=== PATIENT | female | born 1985 | race Caucasian/White ===

== ENCOUNTER 2016-09-11 10:55 | Observation (INO) | payer OTHER ==
[~2016-09-11] VITALS: Ht 159 cm; Wt 77.0 kg
[~2016-09-11 10:55] MED LIST: IBUP-2070 PO; LEVO100 PO; PREN1TAB80 PO
[2016-09-11 12:19] VITALS: BP 97/54
== END 2016-09-11 12:05 | disposition home or self-care (01) ==
LOC: 4S 10:55
PROVIDERS: ADMIT Obstetrics & Gynecology; ATTEND Obstetrics & Gynecology
DX: O36.8130 Decreased fetal movements, third trimester, not applicable or unspecified (principal); O99.283 Endocrine, nutritional and metabolic diseases complicating pregnancy, third trimester; E03.9 Hypothyroidism, unspecified; Z3A.31 31 weeks gestation of pregnancy
CPT/HCPCS: 59025; G0378

== ENCOUNTER 2016-10-03 13:15 | Observation (INO) | payer OTHER ==
[~2016-10-03 13:15] MED LIST changes: -IBUP-2070 PO; -LEVO100 PO
[2016-10-03 13:25] VITALS: BP 113/63
[2016-10-03] MEDS ORDERED: CefTRIAXone SODIUM 1 GM/VIAL IM ONE (14:00)
[2016-10-03] MEDS ORDERED: LIDOCAINE HCL/PF 1% 2 ML VIAL IM ONE (14:00)
[2016-10-03 14:25] LABS: BASOPHILS % (AUTO) 0.2 % (0.0-2.0); HEMATOCRIT 33.8 % (36-46); HEMOGLOBIN 10.9 g/dL (12.0-16.0); LYMPHOCYTES # (AUTO) 1.4 K/uL (1.0-4.8); LYMPHOCYTES % (AUTO) 12.7 % (22.0-44.0); MEAN CORPUSCULAR HEMOGLOBIN 28.5 pg (26.0-34.0); MEAN CORPUSCULAR HGB CONC 32.2 G/dL (31.0-37.0); MEAN CORPUSCULAR VOLUME 89 fL (80-100); MONOCYTES # (AUTO) 0.7 K/uL (0.1-1.0); MONOCYTES % (AUTO) 6.3 % (2.0-9.0); NEUTROPHILS # (AUTO) 8.7 K/uL (1.8-7.7); NEUTROPHILS % (AUTO) 79.8 % (40.0-70.0); RED BLOOD CELL COUNT(AUTO) 3.82 MIL/uL (4.00-5.20); RED CELL DISTRIBUTION WIDTH 14.8 % (11.5-14.5); WHITE BLOOD COUNT (AUTO) 10.9 K/uL (4.5-11.0)
[2016-10-03 14:54] LABS: APPEARANCE,URINE CLOUDY (CLEAR); GLUCOSE, URINE (UA) NEGATIVE (NEGATIVE); KETONES,URINE NEGATIVE (NEGATIVE); LEUKOCYTE ESTERASE ,URINE TRACE (NEGATIVE); OCCULT BLOOD,URINE LARGE (NEGATIVE); PROTEIN,URINE NEGATIVE (NEGATIVE)
[2016-10-03 15:02] LABS: FIBRINOGEN 385 mg/dL (200-400); PARTIAL THROMBOPLASTIN TIME 24 SEC (25-35); PROTHROMBIN TIME 10.3 SEC (9.4-11.6)
[2016-10-03 15:11] LABS: ADD UA MICROSCOPIC YES
[2016-10-03 15:23] LABS: SQUAMOUS EPITHELIAL CELL,UR Moderate /LPF (None Seen)
== END 2016-10-03 16:55 | disposition home or self-care (01) ==
LOC: 4S 13:15
PROVIDERS: ADMIT Obstetrics & Gynecology; ATTEND Obstetrics & Gynecology
DX: O46.93 Antepartum hemorrhage, unspecified, third trimester (principal); Z3A.34 34 weeks gestation of pregnancy
CPT/HCPCS: 36415; 59025; 76805; 81001; 85025; 85362; 85384; 85610; 85730; 86850; 86900; 86901; 87086; 96372; G0378; J0696; J3490

== ENCOUNTER 2016-10-26 02:41 | Inpatient (IN) | payer OTHER ==
[~2016-10-26] VITALS: Ht 157.5 cm; Wt 77.1 kg
[2016-10-26] MEDS ORDERED: RINGERS SOLUTION,LACTATED 1,000 ML IV PRN (03:49)
[2016-10-26] MEDS ORDERED: OXYTOCIN 30 UNITS/LACT RINGERS 500 ML IV ONE (03:49)
[2016-10-26] MEDS ORDERED: METOCLOPRAMIDE HCL 5 MG/ML 2 ML VIAL IVP PRN (04:00)
[2016-10-26] MEDS ORDERED: CITRIC ACID/SODIUM CITRATE 30 ML SOLUTION UDCUP PO PRN (04:00)
[2016-10-26] MEDS ORDERED: FentaNYL CITRATE-PF 100 MCG/2 ML VIAL IVP PRN (04:00)
[2016-10-26] MEDS ORDERED: RINGERS SOLUTION,LACTATED 1,000 ML IV ONE (04:00)
[2016-10-26 04:17] VITALS: BP 99/55
[2016-10-26 04:26] LABS: BASOPHILS % (AUTO) 0.3 % (0.0-2.0); EOSINOPHILS % (AUTO) 1.1 % (1.0-6.0); HEMATOCRIT 33.1 % (36-46); HEMOGLOBIN 10.7 g/dL (12.0-16.0); LYMPHOCYTES # (AUTO) 1.6 K/uL (1.0-4.8); LYMPHOCYTES % (AUTO) 12.9 % (22.0-44.0); MEAN CORPUSCULAR HEMOGLOBIN 27.8 pg (26.0-34.0); MEAN CORPUSCULAR HGB CONC 32.4 G/dL (31.0-37.0); MEAN CORPUSCULAR VOLUME 86 fL (80-100); MONOCYTES # (AUTO) 0.8 K/uL (0.1-1.0); MONOCYTES % (AUTO) 6.5 % (2.0-9.0); NEUTROPHILS # (AUTO) 9.6 K/uL (1.8-7.7); NEUTROPHILS % (AUTO) 79.2 % (40.0-70.0); RED BLOOD CELL COUNT(AUTO) 3.86 MIL/uL (4.00-5.20); RED CELL DISTRIBUTION WIDTH 15.3 % (11.5-14.5); WHITE BLOOD COUNT (AUTO) 12.1 K/uL (4.5-11.0)
[2016-10-26] MEDS ORDERED: OXYTOCIN 30 UNITS/LACT RINGERS 500 ML IV PRN (07:30)
[2016-10-26] MEDS: RINGERS SOLUTION,LACTATED 1,000 ML IV SCH ×3 (11:48→15:14)
[2016-10-26] MEDS ORDERED: BUPIVACAINE HCL/PF 0.25% 30 ML VIAL ONE (13:01)
[2016-10-26] MEDS ORDERED: FentaNYL/BUPIV 0.125%/NS/PF 200 ML ED ONE (13:02)
[2016-10-26] MEDS ORDERED: FentaNYL/BUPIV 0.125%/NS/PF 200 ML ED PRN (13:50)
[2016-10-26] MEDS ORDERED: ONDANSETRON HCL 4 MG/2 ML VIAL IVP PRN (14:00)
[2016-10-26] MEDS ORDERED: DiphenhydrAMINE HCL 50 MG/ML VIAL IVP PRN (14:00)
[2016-10-26] MEDS ORDERED: LIDOCAINE HCL/PF 2% 5 ML VIAL ONE ×2 (15:04→16:46)
[2016-10-26] MEDS ORDERED: OXYTOCIN 20 UNITS in RINGERS SOLUTION,LACTATED 1,000 ML IV ONE (18:30)
[2016-10-26] MEDS ORDERED: LANOLIN 7 GM OINTMENT TP PRN (19:45)
[2016-10-26] MEDS ORDERED: ACETAMINOPHEN/CODEINE 300-30 MG TABLET PO PRN (19:45)
[2016-10-26] MEDS ORDERED: IBUPROFEN 600 MG TABLET PO PRN (19:45)
[2016-10-26] MEDS ORDERED: MAGNESIUM HYDROXIDE SUSPENSION 30 ML UDCUP PO PRN (19:45)
[2016-10-26] MEDS ORDERED: MEASLES/MUMPS/RUBELLA VACCINE, LIVE 0.5 ML/VIAL SQ ONE (19:45)
[2016-10-26] MEDS ORDERED: SENNA/DOCUSATE SODIUM 187-50 MG TABLET PO PRN (19:45)
[2016-10-26] MEDS: GLYCERIN/WITCH HAZEL LEAF 40 PADS JAR TP PRN (20:05)
[2016-10-26] MEDS: BENZOCAINE 20%/MENTHOL 56 GM SPRAY CANISTER TP PRN (20:05)
[2016-10-27] MEDS ORDERED: BETHANECHOL CHLORIDE 10 MG TABLET PO ONE (13:15)
[2016-10-27] MEDS ORDERED: IBUP-2070 PO (16:03)
[2016-10-27] MEDS ORDERED: FERR-89 PO (16:05)
[2016-10-27] MEDS: GLYCERIN/WITCH HAZEL LEAF 40 PADS JAR TP PRN (17:43)
[2016-10-27] MEDS: BENZOCAINE 20%/MENTHOL 56 GM SPRAY CANISTER TP PRN (17:43)
== END 2016-10-27 19:25 | disposition home or self-care (01) | DRG 775 ==
LOC: OBSVTOIN 02:41 → 4S 02:41
PROVIDERS: ADMIT Obstetrics & Gynecology; ATTEND Obstetrics & Gynecology
PROC: 10E0XZZ Delivery of Products of Conception, External Approach (ICD-10-PCS; principal; 2016-10-26)
PROC: 10907ZC Drainage of Amniotic Fluid, Therapeutic from Products of Conception, Via Natural or Artificial Opening (ICD-10-PCS; 2016-10-26)
PROC: 0KQM0ZZ Repair Perineum Muscle, Open Approach (ICD-10-PCS; 2016-10-26)
PROC: 3E0S3CZ (ICD-10-PCS; 2016-10-26)
PROC: 00HU33Z Insertion of Infusion Device into Spinal Canal, Percutaneous Approach (ICD-10-PCS; 2016-10-26)
DX: O70.1 Second degree perineal laceration during delivery (principal); Z37.0 Single live birth; Z3A.37 37 weeks gestation of pregnancy; Z91.018 Allergy to other foods; Z91.013 Allergy to seafood
CPT/HCPCS: J2590; J3490; J7120